=== PATIENT | female | born 1960 | race African-American/Black ===

== ENCOUNTER 2020-04-02 09:57 | Inpatient (IN) | payer MEDICAID, OTHER ==
[~2020-04-02] VITALS: Ht 177.8 cm; Wt 69.5 kg
[2020-04-02] MEDS ORDERED: dilTIAZem 25 MG/5 ML VIAL IV ONE (10:15)
[2020-04-02] MEDS ORDERED: dilTIAZem 125mg/125ml BAG KIT 125 ML IV ONE (10:30)
[2020-04-02] MEDS ORDERED: FUROSEMIDE 40 MG/4 ML VIAL IV ONE (10:30)
[2020-04-02 10:40] LABS: Eosinophils # (auto) 0.1 10 ^3/uL (0-0.8); Neutrophils # (auto) 1.1 10 ^3/uL (1.6-8.6); Nucleated Red Blood Cells % 0.2 %
[2020-04-02 10:46] LABS: Basophils # (auto) 0.1 10 ^3/uL (0-0.2); Basophils % (auto) 2.5 % (0.0-2.0); Eosinophils % (auto) 2.5 % (0.0-7.0); Hematocrit 42.5 % (36.0-46.0); Hemoglobin 13.2 g/dL (12.2-16.2); Lymphocytes # (auto) 1.6 10 ^3/uL (0.4-5.4); Lymphocytes % (auto) 47.9 % (10.0-50.0); Mean Corpuscular Hemoglobin 26.9 pg (28.0-32.0); Mean Corpuscular Hgb Conc. 31.1 g/dL (32.0-36.0); Mean Corpuscular Volume 86.7 fL (80.0-100.0); Monocytes # (auto) 0.4 10 ^3/uL (0-1.3); Monocytes % (auto) 12.3 % (0.0-12.0); Neutrophils % (auto) 34.8 % (37.0-80.0); Platelet Count (auto) 337 10^3/uL (140-450); Red Cell Distribution Width 16.5 % (11.8-14.3); White Blood Cell 3.3 10^3/uL (4.4-10.8)
[2020-04-02 11:02] LABS: Potassium 3.6 mmol/L (3.5-5.1)
[2020-04-02 11:13] LABS: Albumin 3.1 g/dL (3.4-5.0); BUN/Creatinine Ratio 13.8; Bilirubin, Total 0.6 mg/dL (0.2-1.0); Calcium 8.7 mg/dL (8.5-10.1); Total Protein 8.5 g/dL (6.4-8.2)
[2020-04-02 13:37] LABS: Urine Bacteria NONE SEEN /hpf (None Seen); Urine Blood Negative /uL (Negative); Urine Specific Gravity 1.004 (1.001-1.035); Urine WBC None Seen /hpf (0 - 5)
[2020-04-02] MEDS ORDERED: MORPHINE SULF INJ 2 MG/ML SYRINGE 1ML IV PRN (14:45)
[2020-04-02] MEDS ORDERED: NITROGLYCERIN 0.4 MG SL TAB SL PRN (14:45)
[2020-04-02] MEDS ORDERED: METOPROLOL TARTRATE 50 MG TAB PO ONE (14:45)
[2020-04-02] MEDS ORDERED: ACETAMINOPHEN 500 MG TAB PO PRN (14:45)
[2020-04-02] MEDS ORDERED: ONDANSETRON HCL 4 MG/2 ML VIAL IV PRN (14:45)
--- NOTE | 2020-04-02 20:20 | NUR ---
Telemetry admit from ER ELDRIDGE,ROSITA admitted to Telemetry unit after SBAR received. Patient alert and oriented x4 to TY YATES RN primary RN, [address], and unit policies regarding patient care and visiting hours. Patient now on continuous telemetry monitoring, tele box # 52 and telemetry reading Sinus Rhythm at 60's on arrival to unit. Patient placed on bedside oxygen, weighed by bedscale and encouraged to call if they need something. All questions and concerns addressed, patient verbalized understanding. Note:
[2020-04-02] MEDS ORDERED: APIX5TAB PO (20:55)
[2020-04-02] MEDS ORDERED: CARV12.544 PO (20:55)
[2020-04-02] MEDS ORDERED: FURO40TA4 PO (20:55)
[2020-04-02] MEDS ORDERED: LOS25T PO (20:55)
[2020-04-02] MEDS ORDERED: HYDR50TA69 PO (20:55)
[2020-04-02 22:00] VITALS: BP 92/68
[2020-04-02] MEDS: ATORVASTATIN 20 MG TAB PO SCH (22:18)
[2020-04-02] MEDS: MORPHINE SULF INJ 2 MG/ML SYRINGE 1ML IV PRN (22:18)
[2020-04-02 22:19] VITALS: BP 107/79
[2020-04-02] MEDS: APIXABAN 5 MG TAB PO SCH (22:19)
--- NOTE | 2020-04-02 22:20 | NUR ---
Pain medication given. Pain score of 7/10. Will continue to monitor.
--- NOTE | 2020-04-02 23:00 | NUR ---
SCD bilateral legs placed
[2020-04-02] MEDS: CARVEDILOL 12.5 MG TAB PO SCH (23:12)
--- NOTE | 2020-04-03 00:10 | NUR ---
Patient is asleep right now. No signs of SOB or acute distress seen. Will continue to monitor.
[2020-04-03] MEDS: MORPHINE SULF INJ 2 MG/ML SYRINGE 1ML IV PRN (04:34)
--- NOTE | 2020-04-03 04:35 | NUR ---
Pain medication given to patient for pain score of 7/10 on her Chest and lower back. REJI Parks has seen patient from ER. Patient stated she feels better than yesterday. No sob and acute distress noted. Offered to use bedside commode. Educate patient on energy conservation and use of SCD. Patient agreed and verbalized understanding.
[2020-04-03 05:00] VITALS: BP 116/84
[2020-04-03 07:41] LABS: Basophils # (auto) 0.1 10 ^3/uL (0-0.2); Basophils % (auto) 2.7 % (0.0-2.0); Eosinophils # (auto) 0.1 10 ^3/uL (0-0.8); Eosinophils % (auto) 2.8 % (0.0-7.0); Hematocrit 42.5 % (36.0-46.0); Hemoglobin 13.3 g/dL (12.2-16.2); Lymphocytes # (auto) 1.2 10 ^3/uL (0.4-5.4); Lymphocytes % (auto) 45.6 % (10.0-50.0); Mean Corpuscular Hemoglobin 27.2 pg (28.0-32.0); Mean Corpuscular Hgb Conc. 31.4 g/dL (32.0-36.0); Mean Corpuscular Volume 86.6 fL (80.0-100.0); Monocytes # (auto) 0.3 10 ^3/uL (0-1.3); Monocytes % (auto) 10.1 % (0.0-12.0); Neutrophils % (auto) 38.8 % (37.0-80.0); Nucleated Red Blood Cells % 0.3 %; Platelet Count (auto) 312 10^3/uL (140-450); Red Blood Cells 4.91 10^6/uL (4.0-5.20); Red Cell Distribution Width 16.6 % (11.8-14.3); White Blood Cell 2.5 10^3/uL (4.4-10.8)
[2020-04-03 07:58] LABS: Potassium 3.6 mmol/L (3.5-5.1)
--- NOTE | 2020-04-03 08:00 | NUR ---
Opening Shift Note Assumed care of patient, awake, alert and oriented X4. No S/S of distress/SOB or pain. O2 @ 4 LPM via nasal cannula with sats @ 97%. Tele# 52, sinus rhythm @ 78 bpm. IV to left antecubital, 20 gauge, patent and saline locked. Instructed on POC and to call for assist PRN, verbalized understanding. Bed locked, in lowest position, call light within reach, will continue to monitor for changes Q1hr and PRN.
[2020-04-03 08:03] LABS: BUN/Creatinine Ratio 20.5; Calcium 8.7 mg/dL (8.5-10.1)
[2020-04-03 09:00] VITALS: BP 106/76
[2020-04-03] MEDS ORDERED: FUROSEMIDE 20 MG/2 ML VIAL IV SCH (10:00)
[2020-04-03] MEDS: LOSARTAN POTASSIUM 25 MG TAB PO SCH (10:00)
[2020-04-03] MEDS: APIXABAN 5 MG TAB PO SCH ×2 (10:07→21:59)
[2020-04-03] MEDS: CARVEDILOL 12.5 MG TAB PO SCH ×2 (10:07→21:59)
[2020-04-03] MEDS: FAMOTIDINE 20 MG TAB PO SCH (10:08)
--- NOTE | 2020-04-03 11:28 | NUR ---
ROUNDS Dr Garcia at bedside for rounds, new orders received and followed through. Patient updated on plan of care, verbalized understanding.
--- NOTE | 2020-04-03 11:45 | NUR ---
Medical release form and request for records faxed to [facility] Dr[facility] [employer], Xin MENDOZA [phone] per Gibran Parks's request.
[2020-04-03 13:00] VITALS: BP 103/66
[2020-04-03] MEDS ORDERED: FUROSEMIDE 20 MG/2 ML VIAL IV ONE (14:00)
[2020-04-03] MEDS: HYDROcodone-ACET 5/325MG TAB PO PRN ×2 (14:21→20:29)
[2020-04-03 15:40] LABS: BUN/Creatinine Ratio 18.5; Calcium 8.2 mg/dL (8.5-10.1); Potassium 3.6 mmol/L (3.5-5.1)
[2020-04-03 16:43] VITALS: BP 103/62
--- NOTE | 2020-04-03 19:21 | NUR ---
Care endorsed to SANDY Lugo, night nurse.
--- NOTE | 2020-04-03 19:40 | NUR ---
Opening Shift Note Assumed care of patient, awake and alert. No S/S of distress/SOB or pain. Discussed on POC and to call for assist PRN, patient verbalized understanding. Bed in lowest and locked position, call light within reach, will continue to monitor for changes Q1hr and PRN.
[2020-04-03] MEDS: ATORVASTATIN 20 MG TAB PO SCH (21:59)
[2020-04-03 22:00] VITALS: BP 106/70
--- NOTE | 2020-04-03 22:30 | NUR ---
Spoke to REJI Parks and updated on patient's status. Received order at this time (see Emar), acknowledged and read back
[2020-04-04 05:00] VITALS: BP 80/55
[2020-04-04] MEDS: HYDROcodone-ACET 5/325MG TAB PO PRN ×2 (06:28→13:42)
[2020-04-04 06:54] VITALS: BP 102/74
--- NOTE | 2020-04-04 08:00 | NUR ---
Opening Shift Note Assumed care of patient, awake, alert and oriented X4. No S/S of distress/SOB or pain. O2 @ 3 LPM via nasal cannula with sats @ 97%. Tele# 52, Atrial Fibrillation @ 86 bpm. IV to left antecubital, 20 gauge, patent and saline locked. Instructed on POC and to call for assist PRN, verbalized understanding. Bed locked, in lowest position, call light within reach, will continue to monitor for changes Q1hr and PRN.
[2020-04-04 09:00] VITALS: BP 100/66
[2020-04-04] MEDS: LOSARTAN POTASSIUM 25 MG TAB PO SCH (10:00)
[2020-04-04] MEDS: CARVEDILOL 12.5 MG TAB PO SCH ×2 (10:04→22:00)
[2020-04-04] MEDS: FAMOTIDINE 20 MG TAB PO SCH (10:04)
[2020-04-04] MEDS: ENOXAPARIN SOD 80 MG/0.8ML SYRINGE SC SCH ×2 (10:04→22:00)
--- NOTE | 2020-04-04 10:07 | NUR ---
Call placed to [facility] Dr. [employer], Xin MENDOZA @ [phone], spoke to Dulce Maria, informed medial release form faxed yesterday with request for medical records from June 2019. Verbalized she will fax records now.
--- NOTE | 2020-04-04 11:15 | NUR ---
ROUNDS Dr Garcia at bedside for rounds, no new orders at this time. Patient updated on plan of care, verbalized understanding.
--- NOTE | 2020-04-04 12:06 | NUR ---
MEDICAL RECORDS Medical records received from [facility], placed in patients chart.
[2020-04-04 13:00] VITALS: BP 115/67
[2020-04-04] MEDS: FUROSEMIDE 40 MG/4 ML VIAL IV SCH (13:41)
[2020-04-04 16:51] VITALS: BP 118/88
--- NOTE | 2020-04-04 19:16 | NUR ---
Care endorsed to SANDY Barrera, night nurse.
[2020-04-04 22:00] VITALS: BP 94/73
[2020-04-04] MEDS: ATORVASTATIN 20 MG TAB PO SCH (22:00)
[2020-04-05] MEDS: HYDROcodone-ACET 5/325MG TAB PO PRN ×2 (04:58→14:52)
[2020-04-05 05:04] VITALS: BP 94/64
--- NOTE | 2020-04-05 08:00 | NUR ---
Opening Shift Note Assumed care of patient, awake and alert. No S/S of distress/SOB or pain. Instructed on POC and to call for assist PRN, will continue to monitor for changes Q1hr and PRN.
[2020-04-05 09:00] VITALS: BP 137/66
--- NOTE | 2020-04-05 10:00 | NUR ---
Patient is for [facility] tomorrow with Dr. Nelson.
[2020-04-05] MEDS: SACUBITRIL-VALSARTAN 24mg/26mg TAB PO SCH ×2 (10:18→21:52)
[2020-04-05] MEDS: CARVEDILOL 3.125 MG TAB PO SCH ×2 (10:19→21:52)
[2020-04-05] MEDS: FAMOTIDINE 20 MG TAB PO SCH (10:19)
[2020-04-05] MEDS: FUROSEMIDE 40 MG/4 ML VIAL IV SCH (10:20)
[2020-04-05] MEDS ORDERED: SACU1TAB PO (10:22)
--- NOTE | 2020-04-05 11:37 | NUR ---
Nutrition Assessment Est energy needs 6850-1890 kcal (25-30 kcal/kg BW 68.8kg) Est protein needs 55-69g (0.8-1g/kg BW 68.8kg) Will reassess prn Addendum: 04/05/20 at [address] Amended: Links added.
[2020-04-05 13:00] VITALS: BP 95/77
[2020-04-05 15:22] LABS: Amphetamine Screen, Urine NEGATIVE (NEGATIVE); Barbiturate Scree,Urine NEGATIVE (NEGATIVE); Benzodiazephine Screen, Urine NEGATIVE (NEGATIVE); Cannabinoid Screen, Urine NEGATIVE (NEGATIVE); Cocaine Screen, Urine NEGATIVE (NEGATIVE); Opiate Scree,Urine NEGATIVE (NEGATIVE); Phencyclidine Screen, Urine NEGATIVE (NEGATIVE)
[2020-04-05 17:00] VITALS: BP 113/75
--- NOTE | 2020-04-05 19:10 | NUR ---
Opening Shift Note Assumed care of patient from day shift RN, patient awake and alert x4. No S/S of distress/SOB or pain. Instructed on POC and to call for assist PRN, safety measures in place side rails up x2 call light with in reach and bed in lowest position. will continue to monitor for changes Q1hr and PRN.
[2020-04-05] MEDS: ATORVASTATIN 20 MG TAB PO SCH (21:51)
[2020-04-05] MEDS: ENOXAPARIN SOD 80 MG/0.8ML SYRINGE SC SCH (21:52)
[2020-04-05 22:00] VITALS: BP_SYST 90; BP_SYST 94; BP_SYST 97; BP_DIAS 58; BP_DIAS 61; BP_DIAS 66
[2020-04-05] MEDS ORDERED: APIXABAN 5 MG TAB PO SCH (22:00)
[2020-04-06 05:00] VITALS: BP 102/67
[2020-04-06 08:05] LABS: White Blood Cell 2.5 10^3/uL (4.4-10.8)
[2020-04-06 08:07] LABS: Hematocrit 42.3 % (36.0-46.0); Hemoglobin 13.3 g/dL (12.2-16.2); Mean Corpuscular Hgb Conc. 31.4 g/dL (32.0-36.0); Mean Corpuscular Volume 86.2 fL (80.0-100.0); Platelet Count (auto) 316 10^3/uL (140-450)
[2020-04-06 08:19] LABS: INR 1.12 (0.9-1.15); Partial Thromboplastin Time 30.2 sec (23.0-31.2)
[2020-04-06 08:22] LABS: BUN/Creatinine Ratio 17.6; Calcium 8.6 mg/dL (8.5-10.1); Potassium 3.8 mmol/L (3.5-5.1)
[2020-04-06 08:46] LABS: Band Neutrophils % (manual) 0; Basophils % (manual) 0 (0.0-2.0); Blast Cells 0; Metamyelocytes % 0; Myelocytes % 0; Promyelocytes % 0; Reactive Lymphocytes 0
[2020-04-06 08:49] LABS: Eosinophils % (manual) 6 (0-7); Lymphocytes % (manual) 37 (10.0-50.0); Monocytes % (manual) 11 (0-12)
[2020-04-06 09:00] VITALS: BP 109/74
[2020-04-06] MEDS ORDERED: IODIXANOL 320MG/ML 100ML BTL IV ONE ×2 (09:53→10:46)
[2020-04-06] MEDS ORDERED: LIDOCAINE 2%HCL (LOCAL ANESTH.) INJ 20ML MDV ONE (09:53)
[2020-04-06] MEDS ORDERED: ANGIOMAX 250 MG VIAL IV ONE (09:56)
[2020-04-06] MEDS ORDERED: HEPARIN SODIUM (PORCINE) 5000 UNITS/ML 1ML VIAL ONE (09:56)
[2020-04-06] MEDS ORDERED: VERAPAMIL 2.5MG/ML INJ 2ML VIAL IV ONE (09:57)
[2020-04-06] MEDS ORDERED: SODIUM CHL 0.9% 50 ML ONE (09:57)
[2020-04-06] MEDS ORDERED: MIDAZOLAM HCL 1MG/1ML-2 ML VIAL ONE (09:57)
[2020-04-06] MEDS ORDERED: fentaNYL CITRATE 100 MCG/2 ML VL ONE (09:57)
[2020-04-06] MEDS: FUROSEMIDE 40 MG/4 ML VIAL IV SCH (10:00)
[2020-04-06] MEDS: CARVEDILOL 3.125 MG TAB PO SCH ×2 (10:00→21:26)
[2020-04-06] MEDS: ENOXAPARIN SOD 80 MG/0.8ML SYRINGE SC SCH ×2 (10:00→21:26)
[2020-04-06] MEDS ORDERED: AMIODARONE HCL (50 MG/ ML) 3 ML VIAL IV ONE (11:10)
[2020-04-06] MEDS ORDERED: ONDANSETRON HCL 4 MG/2 ML VIAL IV PRN (11:40)
--- NOTE | 2020-04-06 11:40 | NUR ---
Pt. received in [employer] [facility] [employer] [facility] awake and alert, oriented to person, place and event. Respirations even and unlabored. RIGHT groin soft with no hematoma or bleeding noted, dressing is CDI. Moves all extremities spontaneously but keeps RIGHT leg straight, as instructed. RT pedal pulses palpable @ DP and PT. IV to RIGHT forearm intact; site benign. Pt. instructed re: procedure outcome and plan of care; verbalized understanding and is compliant. Currently denies discomfort, NAD noted.
[2020-04-06] MEDS ORDERED: ONDANSETRON HCL 4 MG/2 ML VIAL ONE (11:54)
--- NOTE | 2020-04-06 11:55 | NUR ---
Pt. c/o nausea; medicated per MD order. RIGHT groin remains soft with dressing CDI. Angiomax IVPB infusing @ 25 ml/hr via pump with 10 ml remaining in bag; IV site benign.
[2020-04-06] MEDS ORDERED: SODIUM CHLORIDE 0.9% 1,000 ML IV SCH (12:00)
--- NOTE | 2020-04-06 12:19 | NUR ---
Angiomax infusion complete. IV NSS infusing via pump at 200 ml/hr. RIGHT groin unchanged. Pt. states relief of nausea. NAD noted.
--- NOTE | 2020-04-06 12:43 | NUR ---
SBAR report given to SANDY Bennett. Pt. stable for transfer back to room.
--- NOTE | 2020-04-06 12:55 | NUR ---
Transferred back to room via bed with assist by deborah Tinajero. Pt. endorsed to SANDY Bennett.
[2020-04-06 13:00] VITALS: BP 109/88
[2020-04-06] MEDS ORDERED: CLOPIDOGREL BISULFATE 75 MG TAB PO ONE (13:30)
[2020-04-06] MEDS: FAMOTIDINE 20 MG TAB PO SCH (13:30)
[2020-04-06] MEDS: SACUBITRIL-VALSARTAN 24mg/26mg TAB PO SCH ×2 (13:31→21:26)
[2020-04-06] MEDS: DAPAGLIFLOZIN 5 MG TAB PO ONE ×2 (14:39→15:20)
--- NOTE | 2020-04-06 14:59 | NUR ---
I faxed life vest order to [employer].
[2020-04-06] MEDS: SODIUM CHLOR 0.9% PF (SALINE LOCK) 10ML VIAL/SYR IV SCH ×2 (15:15→21:25)
--- NOTE | 2020-04-06 15:16 | NUR ---
Pt was complaining of chest pain. Nurse practitioner Charly saw her at the bedside and explained that the discomfort is a expected finding after the heart cath. She told me to give to the patient morphine for chest pain and that an EKG won't be necessary. She also ordered plavix and farxiga for patient after the heart cath. I called pharmacy to double check the uses of the farxiga and the phamarcist said that it is usually for DM but also given to decrease the risk of cardiovascular diseases.
[2020-04-06] MEDS ORDERED: ASPI81CH43 PO (16:03)
[2020-04-06] MEDS ORDERED: CAR3125T PO (16:03)
[2020-04-06] MEDS ORDERED: AMIO200T4 PO (16:03)
[2020-04-06] MEDS ORDERED: CLOP75TA28 PO (16:03)
[2020-04-06] MEDS ORDERED: ATOR40TA52 PO (16:03)
[2020-04-06 16:34] VITALS: BP 104/63
--- NOTE | 2020-04-06 20:04 | NUR ---
put discharge order for patient however said that patient should be fitted with the [employer] life vest before getting discharged. I faxed the paperwork to the company and tomorrow morning will call to see if the vest is ready.
[2020-04-06] MEDS: ATORVASTATIN 20 MG TAB PO SCH (21:26)
[2020-04-06 21:54] VITALS: BP 104/63
[2020-04-06] MEDS: HYDROcodone-ACET 5/325MG TAB PO PRN (21:55)
[2020-04-06] MEDS ORDERED: AMIODARONE HCL 200 MG TAB PO SCH (22:00)
--- NOTE | 2020-04-07 00:03 | NUR ---
[employer] fraud representative came and fitted life vest. Detailed instruction provided as well. Patient is compliant over all. Took her night pills and expressed understanding. Assisted to pack her personal belongings. Called , Bimal, awaiting in the parking lot. POM retrieved from pharmacy and brought by patient. Wheeled down to ed entrance via wheelchair where family is waiting. Safely transferred to private vehicle. No acute distress. Pain medication provided prior to discharge.
[2020-04-07] MEDS ORDERED: ASPirin 81 mg TAB PO SCH (10:00)
[2020-04-07] MEDS ORDERED: CLOPIDOGREL BISULFATE 75 MG TAB PO SCH (10:00)
[2020-04-07] MEDS ORDERED: DAPAGLIFLOZIN 5 MG TAB PO SCH (10:00)
[2020-04-07] MEDS ORDERED: FUROSEMIDE 40 MG/4 ML VIAL IV SCH (10:00)
== END 2020-04-06 23:50 | disposition home or self-care (01) | DRG 175 ==
LOC: ER 09:57 → TELE 09:58 → TELE-WESTW 19:55
PROVIDERS: ADMIT Nurse Practitioner Acute Care; ATTEND Internal Medicine
PROC: 027034Z Dilation of Coronary Artery, One Artery with Drug-eluting Intraluminal Device, Percutaneous Approach (ICD-10-PCS; principal; 2020-04-06)
PROC: 4A023N8 Measurement of Cardiac Sampling and Pressure, Bilateral, Percutaneous Approach (ICD-10-PCS; 2020-04-06)
PROC: B2151ZZ Fluoroscopy of Left Heart using Low Osmolar Contrast (ICD-10-PCS; 2020-04-06)
PROC: B2111ZZ Fluoroscopy of Multiple Coronary Arteries using Low Osmolar Contrast (ICD-10-PCS; 2020-04-06)
DX: I11.0 Hypertensive heart disease with heart failure (principal); I25.10 Atherosclerotic heart disease of native coronary artery without angina pectoris; I50.43 Acute on chronic combined systolic (congestive) and diastolic (congestive) heart failure; I21.A1 Myocardial infarction type 2; J96.01 Acute respiratory failure with hypoxia; I48.0 Paroxysmal atrial fibrillation; D68.59 Other primary thrombophilia; E78.5 Hyperlipidemia, unspecified; I07.1 Rheumatic tricuspid insufficiency; I25.5 Ischemic cardiomyopathy; I31.3 Pericardial effusion (noninflammatory); Z20.828 Contact with and (suspected) exposure to other viral communicable diseases; I25.2 Old myocardial infarction; E44.1 Mild protein-calorie malnutrition
CPT/HCPCS: 36415; 71045; 80048; 80053; 80307; 81001; 81025; 83615; 83735; 83880; 84439; 84443; 84484; 85007; 85025; 85027; 85610; 85730; 86850; 86900; 86901; 87040; 87426; 92928; 93005; 93306; 93453; 96365; 96366; 96375; 99152; 99153; 99291; C1751; C1874; G0378; J2250; J2405; Q9967